=== PATIENT | female | born 1985 | race Hispanic/Latino ===

== ENCOUNTER 2024-05-11 09:56 | Emergency (ER) | payer BC ==
[~2024-05-11] VITALS: Ht 170.2 cm; Wt 74.8 kg
[2024-05-11 10:03] VITALS: BP 152/86; PULSE 110; RESP 18; TEMP 98.3
[2024-05-11 10:25] LABS: RAPID GROUP A STREP negative (NEGATIVE)
[2024-05-11 10:35] LABS: INFLUENZA TYPE A Negative For Type A (NEGATIVE); INFLUENZA TYPE B Negative For Type B (NEGATIVE)
[2024-05-11 10:36] LABS: COVID19 (SARS ANTIGEN RAPID) PRESUMPTIVE NEGATIVE (NEGATIVE)
[2024-05-11] MEDS ORDERED: KETO10TA2 PO (10:48)
[2024-05-11] MEDS ORDERED: AZIT250T9 PO (10:48)
--- NOTE | 2024-05-11 10:49 | ERN ---
General Chief Complaint: Multiple Complaints Stated Complaint: EAR/ THROAT/ BODY ACHES/FEVER Time Seen by MD: 10:10 Time Seen by Midlevel: 10:10 Source: patient History of Present Illness Initial Comments Is a 38-year-old female presenting for evaluation of flu-like symptoms that have been ongoing since yesterday. Symptoms consist of bilateral ear pain, sore throat, and runny nose. No fever, chills, or cough is reported. Patient states her son and his friends have been sick with similar symptoms for the last couple of days. No past medical history or surgical history is reported. Past Medical History Past Medical History: Diabetes-Type II Past Surgical History: None ROS Dictation CONSTITUTIONAL: Negative except for HPI HEAD/FACE: Negative except for HPI EENT: Negative except for HPI RESPIRATORY: Negative except for HPI GASTROINTESTINAL/ABDOMINAL: Negative except for HPI GENITOURINARY: Negative except for HPI MUSCULOSKELETAL: Negative except for HPI INTEGUMENTARY: Negative except for HPI NEUROLOGICAL/PSYCH: Negative except for HPI HEMATOLOGIC/LYMPHATIC: Negative except for HPI All Systems Negative, Except as noted above. 13 point review of systems assessed and all negative except for above. Physical Exam Physical Exam Dictation Vital Signs reviewed General Appearance: Alert, oriented x 3, no acute distress, well developed, nourished. Head and Face: non-traumatic. Eyes: PERRL, pink conjunctivas, eyelid no trauma, anterior chamber with arcus senilis. Ears: Pinnas intact and no signs of trauma or erythema ear canals clear and no discharge TM no erythema Nose: No discharge, no bleeding. Oropharynx: Mouth normal, tongue pink, pharynx clear,no erythema, tonsils no exudates, no abscesses noted, mucous membrane moist Neck: Supple, non-tender, no thyromegaly, no masses, no JVD, no bruits Breast:Deferred Chest:No tenderness, no crepitus, no paradoxical movement, no retractions Lungs:Clear, well-ventilated, symmetric, no rales, no wheezing, no rhonchi, no stridor, good breath sounds bilaterally Heart: Regular rate, regular rhythm, no murmur, no gallops Vascular: no peripheral edema, Abdomen: Soft, positive bowel sounds, nondistended, no guarding, nontender, no rebound, no masses no hepatomegaly, no splenomegaly, no Dumont's sign, no hernias. Rectal: Deferred Genital: Deferred Neurological: Normal speech, motor function intact, sensory function intact Musculoskeletal: Neck nontender, full range of motion, back nontender, full range of motion, Extremities: nontender, full range of motion Skin: Color pink, dry, no turgor, no rash, no lacerations, no abrasions, no contusions. Lymphatic: Deferred Results Laboratory and Microbiology Lab and Micro Result Laboratory Tests Test 05/11/24 10:04 Influenza Type A Antigen Negative For Type A Influenza Type B Antigen Negative For Type B SARS-CoV-2 Antigen (Rapid) PRESUMPTIVE NEGATIVE Group A Streptococcus Rapid negative (NEGATIVE) Labs Reviewed?: Yes MDM MDM: Is a 38-year-old female presenting for evaluation of flu-like symptoms that have been ongoing since yesterday. Symptoms consist of bilateral ear pain, sore throat, and runny nose. No fever, chills, or cough is reported. Patient states her son and his friends have been sick with similar symptoms for the last couple of days. No past medical history or surgical history is reported. Patients specifically denies being . On physical examination patient has balding tympanic membranes bilaterally. There is some clear postnasal drip. No evidence of peritonsillar abscess or tonsillar exudates. Lungs are clear to aus cultation bilaterally. Respiratory swabs are negative. Patient will be discharged home with supportive management. She is to follow up with PCP in 1-2 days for repeat evaluation or return to the ER for any new or worsening symptoms. Patient is agreeable with this plan and is comfortable for discharge. Differential diagnosis: Otitis media, otitis externa, upper respiratory infe ction, viral syndrome There are no social concerns with this patient. Prescription drug management Prescriptions will include: Azithromycin and Toradol Medical management and examination interpretation discussions were had by me with other qualified healthcare professionals as indicated for the patient's care. ED Course Orders Procedure Category Date Status Time Covid19 (Sars Antigen LAB 05/11/24 Complete Rapid) 10:02 Influenza Type A & B, LAB 05/11/24 Complete Rapid 10:02 Rapid (Group A Strep) LAB 05/11/24 Complete 10:02 Vital Signs Date Time Temp Pulse Resp B/P (MAP) Pulse Ox O2 Delivery O2 Flow Rate FiO2 05/11/24 10:03 98.2 110 18 152/86 99 Room Air 0 DX & DISP Disposition: Discharge Departure Impression: Primary Impression: Upper respiratory infection Condition: Stable Scripts Ketorolac Tromethamine (Ketorolac Tromethamine) 10 Mg Tablet 10 MG PO BID for 5 Days, #10 TAB Prov: CHARLIE AMBROSE 05/11/24 Azithromycin (Azithromycin) 250 Mg Tablet 250 MG PO DAILY for 5 Days, #5 TAB Prov: CHARLIE AMBROSE 05/11/24 Additional Instructions: Your flu, COVID, and strep test are negative. Please follow up with primary care provider in 1-2 days for repeat evaluation. Return to the emergency department for any new or worsening symptoms. Referrals: SELF,REFERRAL (PCP) Time of Disposition: 10:47 I have reviewed the case, and I agree with, Diagnosis and Plan CHARLIE AMBROSE May 11, 2024 10:49
== END 2024-05-11 11:18 | disposition home or self-care (01) ==
LOC: EDH 09:56
DX: J06.9 Acute upper respiratory infection, unspecified (principal); E11.9 Type 2 diabetes mellitus without complications; Z20.822 Contact with and (suspected) exposure to COVID-19
CPT/HCPCS: 87426; 87804; 87880